=== PATIENT | female | born 1965 | race Caucasian/White ===

== ENCOUNTER 2023-08-16 09:04 | Outpatient (AMB) | payer MEDICARE, MEDICAID, SELFPAY ==
--- NOTE | 2023-08-16 09:05 | MHC.OFFVIS ---
Vital Signs 08/16/23 09:11 Height 5 ft 2.5 in Weight 220 lb BMI 39.6 BP 142/70 H Blood Pressure Location Rt brachial Position Sitting Pulse 77 Pulse Source Pulse Oximeter Pulse Oximetry (%) 96 Oxygen Delivery Method Room Air Intake Visit Reasons: chronic pain Intake Note: Pain today 09/24 Consumer Affairs Director Required: No Accompanied by: Self / Same As Patient Allergies red dye Allergy (Unknown, Verified 08/16/23 09:10) Anaphylaxis HPI HPI chronic pain: Details: Patient is a 57 years old female with chronic right knee and neck pain, osteoarthritis, cervical intervertebral disc degeneration, history of cervical spine surgery s/p work accident in 1992, methadone use, depression, h/o PE in 2014 and 2021 s/p IVC filter, on Eliquis since 05/2021 (followed by [facility]), anemia, glaucoma, presents today for initial evaluation for right knee and neck pain. Denies any recent trauma, injury or falls. Right knee pain is localized to medial and lateral joint lines without swelling or erythema. She has been receiving cortisone injections by Dr. Montejo, Orthopedic, [facility], last injection was few months ago. She was told she needs right total knee replacement. Neck pain present with movements with limited range of motion, pain and stiffness. Patient reports she has been on methadone with currently dose providing her inadequate analgesia. She has CSRP contract with her PCP and has been interested to increase her methadone dose. Pain affects her daily activities and functioning, mobility, mood, sleep, social interactions and quality of life. She is seeing Psychiatrist Carol Ann Barnhart at [facility] and takes clonazepam 0.5 mg BID. Patient is on chronic anticoagulation on Eliquis. She is hesitant towards interventional treatments but will consider some procedures after reviewing treatments options with her family. Patient denies any fever, chills, weight loss, infection, rash, dizziness, abdominal or groin pain, weakness, bladder or bowel dysfunction or saddle anesthesia. Location: Rignt knee, lower neck Duration: Chronic pain for many years Characteristics of symptom or complaint: Aching, stabbing, burning, tightness Aggravating or associated factors: Movements, climbing stairs, walking, standing, bending, weather changes Relieving factors: Methadone, ice/heat, lidocaine patches, OTC creams, Tylenol Treatment: PT- over 10 years ago, cortisone knee injections [facility] Medical History (Updated 08/16/23 @ 20:13 by DEIDRA Andrews) Long-term current use of opiate analgesic Hypercoagulable state [place] Pulmonary embolism Chronic pain Panic disorder without agoraphobia PTSD (post-traumatic stress disorder) Major depression Anemia Osteoarthritis of knee Morbid obesity Constipation Anxiety Adjustment disorder with depressed mood Degeneration of cervical intervertebral disc Surgical History (Updated 08/16/23 @ 20:13 by DEIDRA Andrews) History of cervical spinal surgery (~1992) Social History (Updated 08/16/23 @ 09:10 by Danielle Maloney) Alcohol intake: never Patient Tobacco Use Status: Never used Tobacco Review of Systems Const All systems reviewed & are unremarkable except as noted in HPI and below Physical Exam Vital Signs: Last Vital Signs Pulse 77 08/16/23 09:11 BP 142/70 H 08/16/23 09:11 Pulse Ox 96 08/16/23 09:11 Oxygen Delivery Method Room Air 08/16/23 09:11 BMI result Body Mass Index 39.6 General: Appears afebrile. Alert and oriented. Mood and affect appropriate. Follows and participates in conversation appropriately. Respiratory effort is unlabored. No cough. Able to transition from sit to stand unassisted. Uses cane with ambulation. Ambulates with bilaterally normal heel strike and toe off. Neck Other: Limited neck range of motion. Endorses tenderness in the upper thoracic and lower cervical spine to palpation. No tenderness to palpation in the lower thoracic/lumbar spine. 5/5 strength in bilateral biceps and triceps. Neck: Yes normal visual inspection, Yes no lymphadenopathy, Yes supple, No anterior neck swelling, No torticollis, Yes no JVD, No prominent supraclavicular fat pad and Yes prominent dorsocervical fat pad Back/Spine/Pelvis Cervical Spine: No Lhermitte's sign positive, loss of normal cervical lordosis, cervical muscular tenderness, pain with cervical ROM, Cervical spine scars present, cervical spasm and No Cervical spine tenderness Thoracic/Lumbar Spine: thoracic and lumbar spine normal to inspection, No Thoracic/lumbar spine scar(s), Lasegue's sign negative, straight leg raise negative bilaterally, pain with thoraco-lumbar ROM, paraspinal muscle tenderness, thoraco-lumbar ROM limited, No thoracic spinal tenderness and lumbar spinal tenderness at L4 and at L5 Extrem General: Yes capillary refill normal, Yes no clubbing, cyanosis or edema and Yes no calf tenderness Right lower extremity: knee (Limited ROM due to pain.) Details: normal to inspection, tenderness Location: of the medial joint line and of the lateral joint line and crepitus; no swelling, no ecchymosis, no deformity and no unusual warmth Psych Appearance: grossly normal Mental Status: mental status grossly normal Speech and movement: Normal speech and movement present Affect: normal affect and Sad affect present Attitude: cooperative Thought process: Normal thought process present Thought content: Normal thought content present, suicidality (none), no hallucinations and Depressive thoughts present Insight: Good insight present (Psych) Judgement: Good judgement present (Psych) Results Reviewed Results Reviewed: Imaging report is not available for review. Assessment & Plan Assessment & Plan (1) Chronic pain syndrome: Code(s): G89.4 - Chronic pain syndrome Category: Medical (2) Right knee pain: Code(s): M25.561 - Pain in right knee Category: Medical (3) Long-term current use of opiate analgesic: Code(s): Z79.891 - intermediate card tender (current) use of opiate analgesic Category: Medical (4) Osteoarthritis of right knee: Code(s): M17.11 - Unilateral primary osteoarthritis, right knee Category: Medical (5) Cervical spondylosis: Code(s): M47.812 - Spondylosis without myelopathy or radiculopathy, cervical region Category: Medical Plan Medical records release sent to [facility] with recent cervical spine and right knee imaging. We discussed interventional treatments for patient's pain generators to reduce her pain and increase functioning including diagnostic versus therapeutic injections, peripheral nerve stimulation with Sprint trial and radiofrequency ablation procedures. We also discussed a longer term pain management procedures such as neuromodulation with SCS or ITDD trials vs implants. Informational brochures were given to patient today. Patient would like to review treatment options with her family and will notify our office if she is interested to proceed with treatments. All questions and concerns have been answered and patient agreed with the plan. Follow-up as needed. Coding Level of Care Code New Pt Level 4 (11066) Diagnoses Chronic pain syndrome G89.4 Right knee pain M25.561 Long-term current use of opiate analgesic Z79.891 Osteoarthritis of right knee M17.11 Cervical spondylosis M47.812
[2023-08-16 09:11] VITALS: BP 142/70; PULSE 77; O2SAT 96; BMI 39.6
== END 2023-08-16 09:36 | disposition home or self-care (01) ==
PROVIDERS: PCP Physician Assistant; Visit Provider Nurse Practitioner Family
DX: G89.4 Chronic pain syndrome (principal); M25.561 Pain in right knee; M17.11 Unilateral primary osteoarthritis, right knee; Z79.891 Long term (current) use of opiate analgesic; M47.812 Spondylosis without myelopathy or radiculopathy, cervical region
CPT/HCPCS: 99204

== ENCOUNTER → 2023-08-16 09:04 | Outpatient (BNVA) | payer MEDICARE, MEDICAID, SELFPAY | PROVIDERS: PCP Physician Assistant; Visit Provider Nurse Practitioner Family | DX: M54.2 Cervicalgia (principal); M19.90 Unspecified osteoarthritis, unspecified site; G89.4 Chronic pain syndrome; M17.11 Unilateral primary osteoarthritis, right knee; M47.812 Spondylosis without myelopathy or radiculopathy, cervical region; Z79.01 Long term (current) use of anticoagulants; Z79.891 Long term (current) use of opiate analgesic | CPT/HCPCS: 99202 ==

== ENCOUNTER 2025-01-15 08:28 | Outpatient (AMB) | payer MEDICARE, MEDICAID, SELFPAY ==
[2025-01-15 08:30] VITALS: BP 142/67; PULSE 68; RESP 16; O2SAT 87; BMI 36.6
--- NOTE | 2025-01-15 08:30 | A.OFFVIS_ITS ---
Vital Signs 01/15/25 08:30 Height 5 ft 2 in Weight 200 lb BMI 36.6 BP 142/67 H Blood Pressure Location Rt brachial Position Sitting Respiration 16 Pulse 68 Pulse Source Pulse Oximeter Pulse Oximetry (%) 87 L Oxygen Delivery Method Room Air Intake Visit Reasons: CHRONIC PAIN Aircraft Avionics Technician Required: No Accompanied by: Self / Same As Patient Allergies red dye Allergy (Unknown, Verified 01/15/25 08:30) Anaphylaxis HPI Comments Details: The patient is a 59 year old individual presenting for management of chronic neck pain. The patient has a history of neck surgery approximately 30 years ago, in 1992, for a disc issue following a work accident. Pain relief lasted for one year post-surgery, after which the patient experienced a return of pain and was diagnosed with arthritis. The patient also reports chronic knee pain, with both knees now hurting a lot. Past remote treatments include physical therapy for the neck, which the patient reports never provided relief and has no interest in pursuing again. The patient has also received cortisone injections from an Orthopedist but has never had injections in the neck. The patient's medical history is significant for pulmonary embolism in 2014 and 2021, for which the patient has an IVC filter and is on Eliquis. The patient had a fall last month and underwent a neck X-ray at [facility]. This report is not available for review today. Current medications for pain include methadone 10 mg taken every four hours (six times a day) and Tylenol. The patient is no longer taking gabapentin. Denies any recent cough, cold, infection, fever or any other significant changes in medical history since last office visit. PRIOR 08/16/23: Patient is a 57 years old female with chronic right knee and neck pain, osteoarthritis, cervical intervertebral disc degeneration, history of cervical spine surgery s/p work accident in 1992, methadone use, depression, h/o PE in 2014 and 2021 s/p IVC filter, on Eliquis since 05/2021 (followed by [facility] Hematology), anemia, glaucoma, presents today for initial evaluation for right knee and neck pain. Denies any recent trauma, injury or falls. Right knee pain is localized to medial and lateral joint lines without swelling or erythema. She has been receiving cortisone injections by Dr. Montejo, Orthopedic, [facility], last injection was few months ago. She was told she needs right total knee replacement. Neck pain present with movements with limited range of motion, pain and stiffness. Patient reports she has been on methadone with currently dose providing her inadequate analgesia. She has CSRP contract with her PCP and has been interested to increase her methadone dose. Pain affects her daily activities and functioning, mobility, mood, sleep, social interactions and quality of life. She is seeing Psychiatrist Carol Ann Barnhart at [facility] and takes clonazepam 0.5 mg BID. Patient is on chronic anticoagulation on Eliquis. She is hesitant towards interventional treatments but will consider some procedures after reviewing treatments options with her family. Patient denies any fever, chills, weight loss, infection, rash, dizziness, abdominal or groin pain, weakness, bladder or bowel dysfunction or saddle anesthesia. Location: Rignt knee, lower neck Duration: Chronic pain for many years Characteristics of symptom or complaint: Aching, stabbing, burning, tightness Aggravating or associated factors: Movements, climbing stairs, walking, standing, bending, weather changes Relieving factors: Methadone, ice/heat, lidocaine patches, OTC creams, Tylenol Treatment: PT- over 10 years ago, cortisone knee injections [facility] Medical History (Updated 01/15/25 @ 09:45 by DEIDRA Andrews) Long-term current use of opiate analgesic Hypercoagulable state [place] Pulmonary embolism Chronic pain Panic disorder without agoraphobia PTSD (post-traumatic stress disorder) Major depression Anemia Osteoarthritis of knee Morbid obesity Constipation Anxiety Adjustment disorder with depressed mood Degeneration of cervical intervertebral disc Surgical History (Updated 08/16/23 @ 20:13 by DEIDRA Andrews) History of cervical spinal surgery (~1992) Social History (Updated 08/16/23 @ 09:10 by Danielle Maloney) Alcohol intake: never Patient Tobacco Use Status: Never used Tobacco Review of Systems Const All systems reviewed & are unremarkable except as noted in HPI and below Physical Exam Vital Signs: Last Vital Signs Pulse 68 01/15/25 08:30 Resp 16 01/15/25 08:30 BP 142/67 H 01/15/25 08:30 Pulse Ox 87 L 01/15/25 08:30 Oxygen Delivery Method Room Air 01/15/25 08:30 BMI result Body Mass Index 36.6 General: Appears afebrile. Alert and oriented. Mood and affect appropriate. Follows and participates in conversation appropriately. Respiratory effort is unlabored. No cough. Able to transition from sit to stand unassisted. Uses cane with ambulation. Ambulates with bilaterally normal heel strike and toe off. Neck Other: Limited neck range of motion in all planes, worse with extension and lateral rotations. Endorses tenderness in the upper thoracic and lower cervical spine to palpation. No tenderness to palpation in the lower thoracic/lumbar spine. 5/5 strength in bilateral biceps and triceps. Neck: Yes normal visual inspection, Yes no lymphadenopathy, Yes supple, No anterior neck swelling, No torticollis, Yes no JVD, No prominent supraclavicular fat pad and Yes prominent dorsocervical fat pad Back/Spine/Pelvis Cervical Spine: No Lhermitte's sign positive, loss of normal cervical lordosis, cervical muscular tenderness, pain with cervical ROM, Cervical spine scars present, cervical spasm, No Cervical spine tenderness and No step off deformity Thoracic/Lumbar Spine: thoracic and lumbar spine normal to inspection, No Thoracic/lumbar spine scar(s), Lasegue's sign negative, pain with thoraco-lumbar ROM, paraspinal muscle tenderness, thoraco-lumbar ROM limited, No thoracic spinal tenderness and lumbar spinal tenderness at L4 and at L5 Extrem General: Yes capillary refill normal, Yes no clubbing, cyanosis or edema and Yes no calf tenderness Results Reviewed Results Reviewed: The patient reported having a neck x-ray last month at [facility] after a fall; the report was not available for review during the visit. Assessment & Plan Assessment & Plan (1) Chronic pain syndrome: Code(s): G89.4 - Chronic pain syndrome Category: Medical (2) Long-term current use of opiate analgesic: Code(s): Z79.891 - FPC (current) use of opiate analgesic Category: Medical (3) Cervical spondylosis: Code(s): M47.812 - Spondylosis without myelopathy or radiculopathy, cervical region Category: Medical (4) Cervical post-laminectomy syndrome: Code(s): M96.1 - Postlaminectomy syndrome, not elsewhere classified Category: Medical (5) Degeneration of cervical intervertebral disc: Code(s): M50.30 - Other cervical disc degeneration, unspecified cervical region Category: Medical Plan The plan is to obtain the report and images from the patient's recent neck X-ray from [facility]. A medical release will be obtained from the patient for this purpose. Pending review of the X-ray and assuming no contraindications, the proposed next step is to perform diagnostic cervical medial branch blocks to confirm axial cervical spine pain. It was discussed that insurance may require a trial of physical therapy, but the patient's strong preference against it due to past ineffectiveness has been noted. Longer term pain management options include radiofrequency ablation, which can provide up to 12 months of relief and is repeatable, or a peripheral nerve stimulator, which is placed for two months and may provide up to 10 months of relief. Spinal cord stimulation was also mentioned as a permanent pain relief option. Information on these procedures will be provided to the patient for review. In terms of medication management, gabapentin will be removed from the patient's active medication list as the patient is no longer taking it. All questions and concerns have been answered and patient agreed with the plan. Follow-up for xray results/procedure discussion and sooner as needed. Patient was informed and verbally consented to the use of an ambient scribe for clinic note documentation during this visit. Coding Level of Care Code Est Pt Level 4 (79834) Complex visit Add On G2211 Diagnoses Chronic pain syndrome G89.4 Long-term current use of opiate analgesic Z79.891 Cervical spondylosis M47.812 Cervical post-laminectomy syndrome M96.1 Degeneration of cervical intervertebral disc M50.30
== END 2025-01-15 08:58 | disposition home or self-care (01) ==
PROVIDERS: PCP Physician Assistant; Visit Provider Nurse Practitioner Family
DX: G89.4 Chronic pain syndrome (principal); Z79.891 Long term (current) use of opiate analgesic; M47.812 Spondylosis without myelopathy or radiculopathy, cervical region; M96.1 Postlaminectomy syndrome, not elsewhere classified; M50.30 Other cervical disc degeneration, unspecified cervical region
CPT/HCPCS: 99214; G2211

== ENCOUNTER → 2025-01-15 08:28 | Outpatient (BNVA) | payer MEDICARE, MEDICAID, SELFPAY | PROVIDERS: PCP Physician Assistant; Visit Provider Nurse Practitioner Family | DX: G89.4 Chronic pain syndrome (principal); Z79.891 Long term (current) use of opiate analgesic; M47.812 Spondylosis without myelopathy or radiculopathy, cervical region; M96.1 Postlaminectomy syndrome, not elsewhere classified; M50.30 Other cervical disc degeneration, unspecified cervical region | CPT/HCPCS: 99212 ==